=== PATIENT | female | born 1960 | race Caucasian/White ===

== ENCOUNTER 2017-05-29 08:15 | Emergency (ER) | payer MEDICAID | END 2017-05-29 10:05 | disposition home or self-care (01) | LOC: D.ER 08:15 | DX: S50.311A Abrasion of right elbow, initial encounter (principal); W01.0XXA Fall on same level from slipping, tripping and stumbling without subsequent striking against object, initial encounter; Y93.89 Activity, other specified; Y92.019 Unspecified place in single-family (private) house as the place of occurrence of the external cause; S40.011A Contusion of right shoulder, initial encounter; S50.01XA Contusion of right elbow, initial encounter; S43.401A Unspecified sprain of right shoulder joint, initial encounter; I10 Essential (primary) hypertension ==

== ENCOUNTER 2019-04-25 14:31 | Emergency (ER) | payer MEDICAID ==
[~2019-04-25] VITALS: Ht 162.6 cm; Wt 115.9 kg
[2019-04-25 14:55] VITALS: Ht 162.6 cm; Wt 115.9 kg
[2019-04-25] MEDS ORDERED: GLUCOPHAGE500 MG PO (14:58)
[2019-04-25] MEDS ORDERED: HTN MED? (14:58)
[2019-04-25] MEDS ORDERED: TORADOL10 MG PO (16:28)
[2019-04-25 16:46] VITALS: BP 122/64
== END 2019-04-25 16:47 | disposition home or self-care (01) ==
LOC: D.ER 14:31
DX: S92.512A Displaced fracture of proximal phalanx of left lesser toe(s), initial encounter for closed fracture (principal); X58.XXXA Exposure to other specified factors, initial encounter; Y93.9 Activity, unspecified; Y92.9 Unspecified place or not applicable; E11.9 Type 2 diabetes mellitus without complications; Z79.84 Long term (current) use of oral hypoglycemic drugs; I10 Essential (primary) hypertension